=== PATIENT | female | born 1985 | race American Indian/Alaskan Native ===

== ENCOUNTER 2021-07-18 10:32 | Outpatient (CLI) | payer MEDICAID ==
--- NOTE | 2021-07-18 12:28 | Ultrasound Report ---
ULTRASOUND OBSTETRIC LIMITED ULTRASOUND BIOPHYSICAL PROFILE INDICATION / CLINICAL INFORMATION: [email or web address]. TECHNIQUE: Transabdominal. COMPARISON: None available. FINDINGS: BREATHING MOVEMENT = 2 GROSS BODY MOVEMENT = 2 TONE = 2 QUALITATIVE AMNIOTIC FLUID VOLUME = 2 TOTAL BIOPHYSICAL SCORE = 8/8 HEART RATE (beats per minute): 123 AMNIOTIC FLUID INDEX (cm) = 10.6 (normal = 7-24 cm) PRESENTATION: Cephalic. ADDITIONAL FINDINGS: None. IMPRESSION: 1. Biophysical Score = 8/8 2. Amniotic fluid index of 10.6 cm. Signer Name: Smith Castro MD Signed: 07/18/2021 12:24 PM Workstation Name: [id number]
[2021-07-18 13:52] LABS: Hematocrit 34.5 % (30.3-42.9); Hemoglobin 11.4 gm/dl (10.1-14.3); Mean Corpuscular HGB Conc 33 % (30-34); Mean Corpuscular Volume 83 fl (79-97); Platelet Count 335 K/mm3 (140-440); Red Blood Count 4.16 M/mm3 (3.65-5.03); Red Cell Distribution Width 19.1 % (13.2-15.2)
[2021-07-18 14:13] LABS: Alanine Aminotransferase 32 units/L (7-56)
[2021-07-18 14:45] LABS: Uric Acid 3.9 mg/dL (3.5-7.6)
[2021-07-18 14:49] VITALS: BP 156/90
[2021-07-18 14:51] LABS: Bacteria,Urine 1+ /HPF (Negative); Bilirubin,Urine NEG (Negative); Blood,Urine NEG (Negative); Color,Urine Yellow (Yellow); Mucus,Urine FEW /HPF; Protein,Urine <15 mg/dL mg/dL (Negative); Urobilinogen,Urine < 2.0 mg/dL (<2.0)
[2021-07-18 14:56] LABS: Amphetamine Screen,Urine Negative; Benzodiazepines Screen,Urine Negative; Cannabinoid Screen,Urine Negative; Cocaine Screen,Urine Negative; Methadone Screen,Urine Negative; Opiate Screen,Urine Negative
[2021-07-18] MEDS ORDERED: LACTATED RINGERS 500 ML IV ONE (16:00)
== END 2021-07-18 16:00 | disposition home or self-care (01) ==
LOC: TRG 10:32 → LD 10:32 → TRG 16:00
PROVIDERS: ATTEND Obstetrics & Gynecology
DX: Z34.93 Encounter for supervision of normal pregnancy, unspecified, third trimester (principal); Z3A.31 31 weeks gestation of pregnancy
CPT/HCPCS: 36415; 59025; 76815; 76819; 80307; 81001; 82565; 83615; 84450; 84460; 84550; 85027